=== PATIENT | female | born 1950 | race Caucasian/White ===

== ENCOUNTER 2020-06-30 14:31 | Inpatient (IN) ==
[2020-06-30] MEDS: Carbidopa/Levodopa 25/100 TABLET PO SCH ×2 (17:13→21:41)
[2020-06-30] MEDS: CARBIDOPA 25 MG PO SCH (20:56)
[2020-06-30] MEDS: Acetaminophen 325 MG TABLET PO PRN (20:58)
[2020-06-30] MEDS: Nitrofurantoin (BID) 100 MG CAPSULE PO SCH (21:41)
[2020-07-01] MEDS ORDERED: cefTRIAXone 1,000 MG in Water for inj. (sterile) 10 ML IVP SCH (09:00)
[2020-07-01] MEDS: Multivit/Ca/Min/Fe/FA 1 TAB TABLET PO SCH (09:08)
[2020-07-01] MEDS: Nitrofurantoin (BID) 100 MG CAPSULE PO SCH ×2 (09:08→20:45)
[2020-07-01] MEDS: Carbidopa/Levodopa 25/100 TABLET PO SCH ×3 (09:08→20:45)
[2020-07-01] MEDS: amLODIPine 5 MG TABLET PO SCH (09:08)
[2020-07-01] MEDS: Acetaminophen 325 MG TABLET PO PRN ×2 (09:16→14:40)
[2020-07-01] MEDS: CARBIDOPA 25 MG PO SCH ×3 (09:17→20:46)
[2020-07-01] MEDS: Ciprofloxacin/Dex *EAR* Susp 7.5 ML BOTTLE BOTH EARS SCH (10:09)
[2020-07-01] MEDS: Amoxicillin 500 MG CAPSULE PO SCH (20:45)
[2020-07-02 08:03] LABS: Hematocrit 30.8 % (35.3-44.9); Hemoglobin 10.3 g/dL (11.5-15.4); Mean Corpuscular HGB Conc 33.4 g/dL (31.6-35.5); Mean Corpuscular Hemoglobin 29.9 pg (28.0-33.3); Mean Corpuscular Volume 89.5 fL (83.0-100.0); Mean Platelet Volume 10.7 fL (9.4-12.4); Platelet Count 282 K/mcL (140-400); Red Blood Count 3.44 M/mcL (3.82-4.97); Red Cell Distribution Width 13.7 % (11.5-14.5); White Blood Count 6.5 K/mcL (4.3-11.1)
[2020-07-02 08:33] LABS: BUN/Creatinine Ratio 15 (6-26); Blood Urea Nitrogen 8 mg/dL (8-23); Calcium 8.7 mg/dL (8.6-10.3); Carbon Dioxide 27 mEq/L (23-29); Chloride 103 mEq/L (98-107); Glucose 90 mg/dL (70-105); Osmolality,Calculated 286 (280-300); Potassium 3.5 mEq/L (3.5-5.1); Sodium 139 mEq/L (136-145); eGFR For African Americans > 60 (> 60); eGFR For Non-African Americans > 60 (> 60)
[2020-07-02] MEDS: CARBIDOPA 25 MG PO SCH ×3 (10:02→20:40)
[2020-07-02] MEDS: Amoxicillin 500 MG CAPSULE PO SCH ×3 (10:03→20:40)
[2020-07-02] MEDS: Multivit/Ca/Min/Fe/FA 1 TAB TABLET PO SCH (10:03)
[2020-07-02] MEDS: Carbidopa/Levodopa 25/100 TABLET PO SCH ×3 (10:03→20:40)
[2020-07-02] MEDS: Nitrofurantoin (BID) 100 MG CAPSULE PO SCH (10:03)
[2020-07-02] MEDS: Ciprofloxacin/Dex *EAR* Susp 7.5 ML BOTTLE BOTH EARS SCH (10:03)
[2020-07-02] MEDS: amLODIPine 5 MG TABLET PO SCH (10:03)
[2020-07-02] MEDS: Acetaminophen 325 MG TABLET PO PRN (18:51)
[2020-07-03] MEDS: Carbidopa/Levodopa 25/100 TABLET PO SCH ×3 (10:42→21:16)
[2020-07-03] MEDS: Amoxicillin 500 MG CAPSULE PO SCH ×3 (10:42→19:49)
[2020-07-03] MEDS: Ciprofloxacin/Dex *EAR* Susp 7.5 ML BOTTLE BOTH EARS SCH (10:42)
[2020-07-03] MEDS: CARBIDOPA 25 MG PO SCH ×3 (10:42→19:49)
[2020-07-03] MEDS: amLODIPine 5 MG TABLET PO SCH (10:42)
[2020-07-03] MEDS: Multivit/Ca/Min/Fe/FA 1 TAB TABLET PO SCH (10:42)
[2020-07-03] MEDS: Acetaminophen 325 MG TABLET PO PRN ×2 (12:47→19:49)
[2020-07-04] MEDS: CARBIDOPA 25 MG PO SCH ×3 (09:38→20:04)
[2020-07-04] MEDS: Acetaminophen 325 MG TABLET PO PRN ×3 (09:38→21:57)
[2020-07-04] MEDS: Multivit/Ca/Min/Fe/FA 1 TAB TABLET PO SCH (09:39)
[2020-07-04] MEDS: Amoxicillin 500 MG CAPSULE PO SCH ×3 (09:41→20:40)
[2020-07-04] MEDS: amLODIPine 5 MG TABLET PO SCH (09:41)
[2020-07-04] MEDS: Carbidopa/Levodopa 25/100 TABLET PO SCH ×3 (09:41→20:40)
[2020-07-04] MEDS: Ciprofloxacin/Dex *EAR* Susp 7.5 ML BOTTLE BOTH EARS SCH (09:42)
[2020-07-05 06:38] LABS: Basophils % 0.5 %; Eosinophils # 0.2 K/mcL (0.0-0.6); Eosinophils % 3.3 %; Hematocrit 30.3 % (35.3-44.9); Hemoglobin 9.8 g/dL (11.5-15.4); Immature Granulocytes % 0.7 % (0-4); Lymphocytes # 1.1 K/mcL (0.6-4.6); Lymphocytes % 17.9 %; Mean Corpuscular HGB Conc 32.3 g/dL (31.6-35.5); Mean Corpuscular Hemoglobin 29.3 pg (28.0-33.3); Mean Corpuscular Volume 90.4 fL (83.0-100.0); Mean Platelet Volume 10.7 fL (9.4-12.4); Monocytes # 0.6 K/mcL (0.0-1.3); Monocytes % 9.8 %; Neutrophils # 4.1 K/mcL (1.6-8.9); Platelet Count 308 K/mcL (140-400); Red Blood Count 3.35 M/mcL (3.82-4.97); Red Cell Distribution Width 13.8 % (11.5-14.5); Segmented Neutrophils % 67.8 %
[2020-07-05 06:57] LABS: BUN/Creatinine Ratio 17 (6-26); Blood Urea Nitrogen 12 mg/dL (8-23); Calcium 8.4 mg/dL (8.6-10.3); Carbon Dioxide 26 mEq/L (23-29); Chloride 107 mEq/L (98-107); Glucose 94 mg/dL (70-105); Osmolality,Calculated 292 (280-300); Potassium 3.6 mEq/L (3.5-5.1); Sodium 141 mEq/L (136-145); eGFR For African Americans > 60 (> 60); eGFR For Non-African Americans > 60 (> 60)
[2020-07-05] MEDS: Amoxicillin 500 MG CAPSULE PO SCH ×3 (09:28→19:43)
[2020-07-05] MEDS: amLODIPine 5 MG TABLET PO SCH (09:28)
[2020-07-05] MEDS: Carbidopa/Levodopa 25/100 TABLET PO SCH ×3 (09:28→19:42)
[2020-07-05] MEDS: CARBIDOPA 25 MG PO SCH ×3 (09:28→22:05)
[2020-07-05] MEDS: Multivit/Ca/Min/Fe/FA 1 TAB TABLET PO SCH (09:28)
[2020-07-05] MEDS: Ciprofloxacin/Dex *EAR* Susp 7.5 ML BOTTLE BOTH EARS SCH (09:29)
[2020-07-05] MEDS: Acetaminophen 325 MG TABLET PO PRN ×2 (11:14→19:43)
[2020-07-06] MEDS: CARBIDOPA 25 MG PO SCH ×3 (08:00→21:10)
[2020-07-06] MEDS: amLODIPine 5 MG TABLET PO SCH (08:01)
[2020-07-06] MEDS: Amoxicillin 500 MG CAPSULE PO SCH ×3 (08:01→21:10)
[2020-07-06] MEDS: Multivit/Ca/Min/Fe/FA 1 TAB TABLET PO SCH (08:01)
[2020-07-06] MEDS: Carbidopa/Levodopa 25/100 TABLET PO SCH ×3 (08:01→21:10)
[2020-07-06] MEDS: Ciprofloxacin/Dex *EAR* Susp 7.5 ML BOTTLE BOTH EARS SCH (11:27)
[2020-07-06] MEDS ORDERED: *HR* HYDROcodone/Acet 5/325 mg TABLET PO ONE (15:09)
[2020-07-06] MEDS: Acetaminophen 325 MG TABLET PO PRN (21:10)
[2020-07-07] MEDS: Acetaminophen 325 MG TABLET PO PRN ×2 (05:26→14:03)
[2020-07-07] MEDS: CARBIDOPA 25 MG PO SCH ×3 (08:50→21:46)
[2020-07-07] MEDS: amLODIPine 5 MG TABLET PO SCH (08:50)
[2020-07-07] MEDS: Carbidopa/Levodopa 25/100 TABLET PO SCH ×3 (08:50→21:38)
[2020-07-07] MEDS: Multivit/Ca/Min/Fe/FA 1 TAB TABLET PO SCH (08:50)
[2020-07-07] MEDS: Ciprofloxacin/Dex *EAR* Susp 7.5 ML BOTTLE BOTH EARS SCH (08:51)
[2020-07-07 12:19] LABS: Basophils % 0.6 %; Eosinophils # 0.1 K/mcL (0.0-0.6); Eosinophils % 1.9 %; Hematocrit 30.3 % (35.3-44.9); Hemoglobin 9.9 g/dL (11.5-15.4); Immature Granulocytes % 0.3 % (0-4); Lymphocytes # 0.8 K/mcL (0.6-4.6); Lymphocytes % 12.9 %; Mean Corpuscular HGB Conc 32.7 g/dL (31.6-35.5); Mean Corpuscular Hemoglobin 29.3 pg (28.0-33.3); Mean Corpuscular Volume 89.6 fL (83.0-100.0); Mean Platelet Volume 10.3 fL (9.4-12.4); Monocytes # 0.6 K/mcL (0.0-1.3); Monocytes % 9.3 %; Neutrophils # 4.7 K/mcL (1.6-8.9); Platelet Count 289 K/mcL (140-400); Red Blood Count 3.38 M/mcL (3.82-4.97); Red Cell Distribution Width 13.6 % (11.5-14.5); White Blood Count 6.2 K/mcL (4.3-11.1)
[2020-07-07 12:32] LABS: BUN/Creatinine Ratio 30 (6-26); Blood Urea Nitrogen 17 mg/dL (8-23); Calcium 8.4 mg/dL (8.6-10.3); Carbon Dioxide 27 mEq/L (23-29); Chloride 106 mEq/L (98-107); Glucose 116 mg/dL (70-105); Osmolality,Calculated 295 (280-300); Potassium 3.9 mEq/L (3.5-5.1); Sodium 141 mEq/L (136-145); eGFR For African Americans > 60 (> 60); eGFR For Non-African Americans > 60 (> 60)
[2020-07-08] MEDS: Acetaminophen 325 MG TABLET PO PRN ×2 (03:34→13:00)
[2020-07-08] MEDS: Carbidopa/Levodopa 25/100 TABLET PO SCH ×3 (09:28→21:15)
[2020-07-08] MEDS: CARBIDOPA 25 MG PO SCH ×3 (09:28→21:15)
[2020-07-08] MEDS: Multivit/Ca/Min/Fe/FA 1 TAB TABLET PO SCH (09:28)
[2020-07-08] MEDS: Ciprofloxacin/Dex *EAR* Susp 7.5 ML BOTTLE BOTH EARS SCH (09:28)
[2020-07-08] MEDS: amLODIPine 5 MG TABLET PO SCH (09:28)
[2020-07-08] MEDS: Ondansetron Oral Soln 2 MG/2.5 ML ORAL.SYG PO PRN (21:15)
[2020-07-09] MEDS: Carbidopa/Levodopa 25/100 TABLET PO SCH ×3 (09:36→19:52)
[2020-07-09] MEDS: amLODIPine 5 MG TABLET PO SCH (09:36)
[2020-07-09] MEDS: CARBIDOPA 25 MG PO SCH ×3 (09:37→19:52)
[2020-07-09] MEDS: Multivit/Ca/Min/Fe/FA 1 TAB TABLET PO SCH (09:37)
[2020-07-09] MEDS: Ciprofloxacin/Dex *EAR* Susp 7.5 ML BOTTLE BOTH EARS SCH (09:49)
[2020-07-09] MEDS: Acetaminophen 325 MG TABLET PO PRN (11:38)
[2020-07-10] MEDS: Multivit/Ca/Min/Fe/FA 1 TAB TABLET PO SCH (08:25)
[2020-07-10] MEDS: amLODIPine 5 MG TABLET PO SCH (08:25)
[2020-07-10] MEDS: Carbidopa/Levodopa 25/100 TABLET PO SCH ×3 (08:26→20:40)
[2020-07-10] MEDS: Acetaminophen 325 MG TABLET PO PRN (08:26)
[2020-07-10] MEDS: Ciprofloxacin/Dex *EAR* Susp 7.5 ML BOTTLE BOTH EARS SCH (08:31)
[2020-07-10] MEDS: CARBIDOPA 25 MG PO SCH (20:40)
[2020-07-11] MEDS: Acetaminophen 325 MG TABLET PO PRN (03:26)
[2020-07-11] MEDS: Multivit/Ca/Min/Fe/FA 1 TAB TABLET PO SCH (07:48)
[2020-07-11] MEDS: Carbidopa/Levodopa 25/100 TABLET PO SCH ×3 (07:48→21:04)
[2020-07-11] MEDS: amLODIPine 5 MG TABLET PO SCH (07:48)
[2020-07-11] MEDS: CARBIDOPA 25 MG PO SCH ×4 (07:49→21:04)
[2020-07-11] MEDS: Ciprofloxacin/Dex *EAR* Susp 7.5 ML BOTTLE BOTH EARS SCH (07:49)
[2020-07-11] MEDS: Ondansetron Oral Soln 2 MG/2.5 ML ORAL.SYG PO PRN (09:25)
[2020-07-12 08:23] LABS: Hematocrit 31.9 % (35.3-44.9); Hemoglobin 10.6 g/dL (11.5-15.4); Mean Corpuscular HGB Conc 33.2 g/dL (31.6-35.5); Mean Corpuscular Hemoglobin 29.8 pg (28.0-33.3); Mean Corpuscular Volume 89.6 fL (83.0-100.0); Mean Platelet Volume 10.3 fL (9.4-12.4); Platelet Count 281 K/mcL (140-400); Red Blood Count 3.56 M/mcL (3.82-4.97); Red Cell Distribution Width 13.5 % (11.5-14.5); White Blood Count 4.7 K/mcL (4.3-11.1)
[2020-07-12 08:45] LABS: BUN/Creatinine Ratio 17 (6-26); Blood Urea Nitrogen 11 mg/dL (8-23); Calcium 8.6 mg/dL (8.6-10.3); Carbon Dioxide 28 mEq/L (23-29); Chloride 105 mEq/L (98-107); Glucose 99 mg/dL (70-105); Osmolality,Calculated 291 (280-300); Potassium 3.8 mEq/L (3.5-5.1); Sodium 141 mEq/L (136-145); eGFR For African Americans > 60 (> 60); eGFR For Non-African Americans > 60 (> 60)
[2020-07-12] MEDS: Carbidopa/Levodopa 25/100 TABLET PO SCH ×3 (09:12→21:21)
[2020-07-12] MEDS: Multivit/Ca/Min/Fe/FA 1 TAB TABLET PO SCH (09:12)
[2020-07-12] MEDS: amLODIPine 5 MG TABLET PO SCH (09:12)
[2020-07-12] MEDS: CARBIDOPA 25 MG PO SCH ×3 (09:13→21:20)
[2020-07-12] MEDS: Ciprofloxacin/Dex *EAR* Susp 7.5 ML BOTTLE BOTH EARS SCH (09:13)
[2020-07-12] MEDS: Acetaminophen 325 MG TABLET PO PRN (21:20)
[2020-07-13] MEDS: Carbidopa/Levodopa 25/100 TABLET PO SCH ×3 (09:20→20:35)
[2020-07-13] MEDS: CARBIDOPA 25 MG PO SCH ×3 (09:21→20:37)
[2020-07-13] MEDS: Multivit/Ca/Min/Fe/FA 1 TAB TABLET PO SCH (09:21)
[2020-07-13] MEDS: amLODIPine 5 MG TABLET PO SCH (09:21)
[2020-07-13] MEDS: Ciprofloxacin/Dex *EAR* Susp 7.5 ML BOTTLE BOTH EARS SCH (09:22)
[2020-07-13] MEDS: Acetaminophen 325 MG TABLET PO PRN (16:15)
[2020-07-14] MEDS: amLODIPine 5 MG TABLET PO SCH (09:12)
[2020-07-14] MEDS: Carbidopa/Levodopa 25/100 TABLET PO SCH ×3 (09:12→20:45)
[2020-07-14] MEDS: Multivit/Ca/Min/Fe/FA 1 TAB TABLET PO SCH (09:12)
[2020-07-14] MEDS: CARBIDOPA 25 MG PO SCH ×3 (09:13→20:47)
[2020-07-14] MEDS: Ciprofloxacin/Dex *EAR* Susp 7.5 ML BOTTLE BOTH EARS SCH (09:13)
[2020-07-14] MEDS: Ondansetron Oral Soln 2 MG/2.5 ML ORAL.SYG PO PRN (10:49)
[2020-07-14] MEDS: Acetaminophen 325 MG TABLET PO PRN (16:31)
[2020-07-14 20:27] LABS: Adenovirus Not Detected (Not Detect); Bordetella Pertussis Not Detected (Not Detect); Chlamydophila pneumoniae Not Detected (Not Detect); Coronavirus 229E Not Detected (Not Detect); Coronavirus HKU1 Not Detected (Not Detect); Coronavirus NL63 Not Detected (Not Detect); Coronavirus OC43 Not Detected (Not Detect); Human Metapneumovirus Not Detected (Not Detect); Human Rhinovirus/Enterovirus Not Detected (Not Detect); Influenza A Subtype 2009 H1 Not Detected (Not Detect); Influenza B Not Detected (Not Detect); Mycoplasma pneumoniae Not Detected (Not Detect); Parainfluenza Virus 1 Not Detected (Not Detect); Parainfluenza Virus 2 Not Detected (Not Detect); Parainfluenza Virus 3 Not Detected (Not Detect); Parainfluenza Virus 4 Not Detected (Not Detect); Respiratory Syncytial Virus Not Detected (Not Detect); SARS-CoV-2 Not Detected (Not Detect)
[2020-07-15] MEDS: Multivit/Ca/Min/Fe/FA 1 TAB TABLET PO SCH (10:52)
[2020-07-15] MEDS: Carbidopa/Levodopa 25/100 TABLET PO SCH ×3 (10:53→22:53)
[2020-07-15] MEDS: amLODIPine 5 MG TABLET PO SCH (10:53)
[2020-07-15] MEDS: Ciprofloxacin/Dex *EAR* Susp 7.5 ML BOTTLE BOTH EARS SCH (11:13)
[2020-07-15] MEDS: CARBIDOPA 25 MG PO SCH ×3 (11:14→21:42)
[2020-07-15] MEDS: Acetaminophen 325 MG TABLET PO PRN (21:40)
[2020-07-16 07:53] VITALS: BP 125/67
[2020-07-16] MEDS: CARBIDOPA 25 MG PO SCH ×3 (09:59→10:50)
[2020-07-16] MEDS: Multivit/Ca/Min/Fe/FA 1 TAB TABLET PO SCH (09:59)
[2020-07-16] MEDS: Ciprofloxacin/Dex *EAR* Susp 7.5 ML BOTTLE BOTH EARS SCH (09:59)
[2020-07-16] MEDS: Carbidopa/Levodopa 25/100 TABLET PO SCH (09:59)
[2020-07-16] MEDS: amLODIPine 5 MG TABLET PO SCH (09:59)
== END 2020-07-16 15:20 | disposition home health service (06) | DRG 949 ==
LOC: INPPIK 16:35
PROVIDERS: ADMIT Family Medicine; ATTEND Family Medicine